=== PATIENT | female | born 1985 | race Caucasian/White ===

== ENCOUNTER 2025-08-27 08:42 | Inpatient (IN) | payer SELFPAY ==
[2025-08-27 09:36] LABS: APPEARANCE,URINE CLEAR; GLUCOSE,URINE NEGATIVE (NEGATIVE); OCCULT BLOOD,URINE TRACE-INTACT (NEGATIVE)
[2025-08-27] MEDS ORDERED: Ondansetron 4 MG/2 ML SDV IVPUSH PRN (12:11)
[2025-08-27] MEDS ORDERED: Water For Irrigation,Sterile 1,000 ML Container IRR PRN (12:11)
[2025-08-27] MEDS ORDERED: Sodium Chloride 0.9% 2.5 ML Syringe FLUSH PRN (12:11)
[2025-08-27] MEDS ORDERED: Butorphanol 1 MG/ML SDV IVPUSH PRN (12:11)
[2025-08-27] MEDS ORDERED: Sodium Chloride 0.9% 10 ML Syringe FLUSH PRN (12:11)
[2025-08-27] MEDS ORDERED: Carboprost Tromethamine 250 MCG/1 mL Vial IM PRN (12:11)
[2025-08-27 13:05] LABS: MEAN PLATELET VOLUME 9.6 fL (9.4-12.3); NRBC ABSOLUTE 0.00 K/uL (0.00-0.02); NRBC PERCENT 0.0 /100WBC (0.0-0.2); PLATELET COUNT,PLT 219 K/uL (150-400); RED BLOOD CELL COUNT 5.28 M/uL (4.10-5.30); WHITE BLOOD CELL COUNT,WBC 15.16 K/uL (3.9-11.3)
[2025-08-27] MEDS ORDERED: Ropivacaine HCl/PF 200 ML ONE (14:07)
[2025-08-27] MEDS: Lactated Ringers 1,000 ML IV SCH (14:08)
[2025-08-27] MEDS: Ropivacaine HCl/PF 400 MG in Premix Bag 1 BAG EPIDUR SCH (14:18)
[2025-08-27] MEDS ORDERED: Lidocaine 1% 2 ML ONE (14:26)
[2025-08-27] MEDS ORDERED: ePHEDrine 50 MG/ML SDV IVPUSH PRN (14:36)
[2025-08-27] MEDS ORDERED: dexmedeTOMIDine HCl 200 MCG/2 ML SDV EPIDUR SCH (14:45)
[2025-08-27] MEDS: Oxytocin/0.9 % Sodium Chloride 30 UNIT/500 ML BAG IV SCH (17:50)
[2025-08-27] MEDS ORDERED: Lanolin 100% Cream 7 GM Tube TOP PRN (18:23)
[2025-08-27] MEDS ORDERED: Aluminum Hydroxide/Magnesium Hydroxide/Simethicone Susp 30 ML Cup PO PRN (18:23)
[2025-08-27 18:36] LABS: PH,UMBILICAL ARTERIAL 7.24 (7.18-7.38); PH,UMBILICAL VENOUS 7.38 (7.25-7.45)
[2025-08-27] MEDS: Benzocaine/Menthol 20%-0.5% Spray 78 GM Cannister TOP PRN (20:10)
[2025-08-27] MEDS: Witch Hazel Medicated Pads 40/Jar TOP PRN (20:10)
[2025-08-28] MEDS: dexmedeTOMIDine HCl 200 MCG/2 ML SDV ONE (06:13)
[2025-08-28 06:22] LABS: A/G RATIO 0.7 (0.9-1.6); ALANINE AMINOTRANSFERASE,ALT 17.0 IU/L (14-63); ASPARTATE AMNIOTRANSFERASE,AST 24.0 IU/L (15-37); BILIRUBIN TOTAL 0.3 mg/dL (0.2-1.0); BLOOD UREA NITROGEN,BUN 3.0 mg/dL (7.0-18.0); CARBON DIOXIDE,CO2 21.4 mmol/L (21.0-32.0); CHLORIDE,CL 106.0 mmol/L (98-107); CREATININE 0.6 mg/dL (0.6-1.0); EST CRCL DRUG DOSING (CG) 112.15 mL/min; GLUCOSE RANDOM 90.0 mg/dL (74-106); POTASSIUM,K 3.2 mmol/L (3.5-5.1); PROTEIN TOTAL,TP 5.4 g/dL (6.4-8.2); SODIUM,NA 138.0 mmol/L (136-145)
[2025-08-28 06:25] LABS: ESTIMATED GFR 116.0 mL/min (>60)
[2025-08-28 11:11] LABS: BASOPHILS ABSOLUTE AUTO 0.05 K/uL (0.00-0.20); BASOPHILS PERCENT AUTO 0.3 % (0.0-1.0); EOSINOPHILS ABSOLUTE AUTO 0.04 K/uL (0.00-0.45); EOSINOPHILS PERCENT AUTO 0.3 % (0.0-6.0); IMMATURE GRAN ABSOLUTE AUTO 0.09 K/uL (0.00-0.05); IMMATURE GRAN PERCENT AUTO 0.6 % (0.0-0.4); LYMPHOCYTES ABSOLUTE AUTO 2.12 K/uL (1.00-4.80); LYMPHOCYTES PERCENT AUTO 13.6 % (24.0-44.0); MEAN PLATELET VOLUME 9.8 fL (9.4-12.3); MONOCYTES ABSOLUTE AUTO 1.30 K/uL (0.00-0.80); MONOCYTES PERCENT AUTO 8.4 % (0.0-8.0); NEUTROPHILS ABSOLUTE AUTO 11.96 K/uL (1.80-7.70); NEUTROPHILS PERCENT AUTO 76.8 % (41.0-71.0); NRBC ABSOLUTE 0.00 K/uL (0.00-0.02); NRBC PERCENT 0.0 /100WBC (0.0-0.2); PLATELET COUNT,PLT 179 K/uL (150-400); RED BLOOD CELL COUNT 4.25 M/uL (4.10-5.30); WHITE BLOOD CELL COUNT,WBC 15.56 K/uL (3.9-11.3)
[2025-08-28 20:33] VITALS: BP 109/55; PULSE 76
== END 2025-08-28 21:33 | disposition home or self-care (01) | DRG 807 ==
LOC: MW.OBCHECK 08:42 → MW.OB 08:43 → MW.OBCHECK 12:29 → OBSVTOIN 18:23 → MW.OB 20:34
PROVIDERS: ADMIT Obstetrics & Gynecology; ATTEND Obstetrics & Gynecology
PROC: 10E0XZZ Delivery of Products of Conception, External Approach (ICD-10-PCS; principal; 2025-08-27)
PROC: 3E0DXGC Introduction of Other Therapeutic Substance into Mouth and Pharynx, External Approach (ICD-10-PCS; 2025-08-27)
PROC: 3E0P7VZ Introduction of Hormone into Female Reproductive, Via Natural or Artificial Opening (ICD-10-PCS; 2025-08-27)
DX: O48.0 Post-term pregnancy (principal); Z37.0 Single live birth; Z3A.40 40 weeks gestation of pregnancy; O69.1XX0 Labor and delivery complicated by cord around neck, with compression, not applicable or unspecified; O66.0 Obstructed labor due to shoulder dystocia; O34.211 Maternal care for low transverse scar from previous cesarean delivery; O36.63X0 Maternal care for excessive fetal growth, third trimester, not applicable or unspecified; O42.02 Full-term premature rupture of membranes, onset of labor within 24 hours of rupture
CPT/HCPCS: 36415; 59612; 76805; 76805-26; 80053; 81003; 82803; 82947; 84112; 85025; 85027; 86592; 86850; 86900; 86901; A9270-GY; J0665; J2003; J2371; J2590; J2795; J7120